=== PATIENT | male | born 2000 | race Hispanic/Latino ===

== ENCOUNTER 2024-12-12 14:56 | Emergency (ER) | payer BC ==
[~2024-12-12] VITALS: Ht 188 cm; Wt 101.2 kg
--- NOTE | 2024-12-12 16:24 | HMCIMG ---
EXAM: CT Head Without IV contrast. CLINICAL HISTORY: Headache TECHNIQUE: Axial computed tomography images of the head/brain without intravenous contrast. COMPARISON: None provided. FINDINGS: BRAIN: No evidence of acute hemorrhage. No mass lesion. No CT evidence for acute territorial infarct. No midline shift or extra-axial collections. VENTRICLES: No hydrocephalus. ORBITS: The orbits are unremarkable. SINUSES AND MASTOIDS: The paranasal sinuses and mastoid air cells are clear. BONES: No fracture. SOFT TISSUES: Unremarkable. IMPRESSION: No acute intracranial abnormality. /[place]
--- NOTE | 2024-12-12 16:36 | ERN ---
ED Note History of Present Illness Stated Complaint: HEADACHE Chief Complaint: Headache Time Seen by MD: 14:58 Time Seen by Midlevel: 15:00 Dictation: 23-year-old male with no past medical history coming in with complaints of feels like something is dripping inside my head. Patient states it has been going on for two week. Patient is also stating he has a headache when he turns to the left. Denies having any fever, nausea or vomiting or diarrhea. Denies any numbness tingling, slurred speech, dizziness, vision changes. Denies any neck pain. Allergies: Coded Allergies: No Known Drug Allergies (Unverified Allergy, Unknown, 12/12/24) Past Medical History Past Medical History: Heart Disease, Hypertension Surgical History: None Review of System Dictation Constitutional: Negative for fever,chills, and weight loss Eyes: Negative for injury, pain,redness, and discharge ENT: Negative for injury,pain or swelling Cardiovascular: Negative for chest pain, palpitations, and edema Respiratory: Negative for shortness of breath, cough, and wheezing, Abdomen/GI: Negative for abdominal pain, nausea, vomiting, diarrhea, and constipation Back: Negative for injury and pain : Negative for injury, bleeding and discharge MS/Extremity: Negative for injury and deformity Skin: Negative for rash, and discoloration Neuro: Negative for headache, weakness, numbness, tingling, and seizure , feels something dripping" in his head Psych: Negative for suicide ideation, homicidal ideation, and hallucinations Review of Systems: was completed Initial Vital Sign VS Vital Signs Date Time Temp Pulse Resp B/P (MAP) Pulse Ox O2 Delivery O2 Flow Rate FiO2 12/12/24 14:59 98.2 90 18 138/88 97 Room Air 0 12/12/24 15:29 21 Physical Exam Dictation General: awake, alert, NAD Head/Face: Normocephalic, atraumatic Eyes: PERRL, EOMI, vision at baseline ENT: oral cavity clear, TMs clear, no signs of infection Neck: Trachea midline, supple, no nuchal rigidity Cardiovascular: RRR, normal S1/S2, No MRGs, no JVD Respiratory: CTAB, no respiratory distress, No rales or wheezes Abdomen: Soft, non-tender, non-distended, normal bowel sounds, no guarding or rebound. Skin: Warm, dry, normal turgor, no rash MS/Extremity: Pulses equal, no cyanosis, neurovascular intact, FROM Neuro: COAx4, GCS 15, strength 5/5, CN 2-12 intact, normal cerebellar exam, normal gait, Psych: Normal behavior, mood, and affect normal Results (Laboratory/Radiology) CT Scan Comment: [place] [address] [place] [address] IMAGING REPORT Signed PATIENT: MAYKEL GARCIA MR#: [id number] : 2000 SEX: M AGE: 23 LOCATION: [facility] ORDER 38 STATUS: [facility] REPORT#: [id number] SERVICE 37 REASON: [place] ORDERING PHYSICIAN: BRIGETTE FORD PROCEDURE: HEAD WO - CT HEAD/BRAIN W/O CONTRAST EXAM: CT Head Without IV contrast. CLINICAL HISTORY: Headache TECHNIQUE: Axial computed tomography images of the head/brain without intravenous contrast. COMPARISON: None provided. FINDINGS: BRAIN: No evidence of acute hemorrhage. No mass lesion. No CT evidence for acute territorial infarct. No midline shift or extra-axial collections. VENTRICLES: No hydrocephalus. ORBITS: The orbits are unremarkable. SINUSES AND MASTOIDS: The paranasal sinuses and mastoid air cells are clear. BONES: No fracture. SOFT TISSUES: Unremarkable. IMPRESSION: No acute intracranial abnormality. /[place] DICTATED BY: TAMMY GARCIA MD DATE: 12/12/241723 ELECTRONICALLY SIGNED BY: TAMMY GARCIA MD DATE: 12/12/241723 ED Course ED Course Orders Procedure Category Date Status Time Ct Head/Brain W/O CT 12/12/24 Resulted Contrast 15:38 Vital Signs Date Time Temp Pulse Resp B/P (MAP) Pulse Ox O2 Delivery O2 Flow Rate FiO2 12/12/24 16:51 98.1 88 20 136/72 98 Room Air* 0 21 12/12/24 15:29 89 20 129/70 97 Room Air* 0 21 12/12/24 14:59 98.2 90 18 138/88 97 Room Air 0 Medical Decision Making MDM MDM: 23-year-old male with no past medical history coming in with complaints of feels like something is dripping inside my head. Patient states it has been going on for two week. Patient is also stating he has a headache when he turns to the left. Denies having any fever, nausea or vomiting or diarrhea. Denies any numbness tingling, slurred speech, dizziness, vision changes. Denies any neck pain. CT scan of the head is negative. Discussed with the patient she needs to follow up outpatient he continues with a headache. Educated to stay hydrated take Tylenol or Motrin [id number] for pain control and to use with the hospital if you develop any worsening symptoms. Patient verbalized understanding, answered all questions. Differential diagnosis: Tension headache, ICH, Rationale: Tests considered and ordered secondary to shared decision making include: Previous outside records reviewed: Old ER visits. Risk of complication and/or morbidity or mortality of patient management: None Medications-Per medication reconciliation Need for hospitalization: Patient does not meet criteria for hospitalization. Need for emergency major/minor surgery: No There are no social concerns with this patient. Prescription drug management Prescriptions will include symptomatic care Patient's prior external medical records from other ER visits were reviewed by me as indicated. Prior testing and results from previous visits were reviewed. Prior tests were taken into account with medical decision making and resource utilization, independent historian/historians were used to obtain complete medical history. I independently interpreted the test that were performed, results were reviewed by me and considered findings on radiology if ordered. Medical management and examination interpretation discussions were had by me with other qualified healthcare professionals as indicated for the patient's care. DX & DISP Disposition: Discharge Departure Impression: Primary Impression: Headache Condition: Stable Additional Instructions: Your CAT scan shows everything is normal. Please follow up with your primary care provider for further evaluation. Return to the hospital if you develop any worsening symptoms. You can take Tylenol or Motrin [id number] for pain control. Time of Disposition: 16:35 I have reviewed the case, and I agree with, Diagnosis and Plan BRIGETTE FORD Dec 12, 2024 16:36 JUAN CARROLL DO Dec 12, 2024 19:05
[2024-12-12 16:51] VITALS: BP 136/72; PULSE 88; RESP 20; TEMP 98; O2SAT 98
== END 2024-12-12 16:54 | disposition home or self-care (01) ==
LOC: EDH 14:56
DX: R51.9 Headache, unspecified (principal); I11.9 Hypertensive heart disease without heart failure
CPT/HCPCS: 70450; 99284

== ENCOUNTER 2025-02-08 13:46 | Emergency (ER) | payer BC ==
[~2025-02-08] VITALS: Ht 188 cm; Wt 108.0 kg
[2025-02-08 13:56] VITALS: BP 158/96; PULSE 86; RESP 20; TEMP 98.1; O2SAT 98
--- NOTE | 2025-02-08 14:00 | ERN ---
ED Note History of Present Illness Stated Complaint: HEAD/SCALP PROBLEM Chief Complaint: Other Problems Time Seen by MD: 13:50 Dictation: PATIENT IS A 24-YEAR-OLD MALE COMING TODAY WITH COMPLAINTS OF HAVING SOMETHING CRAWLING IN HIS SCALP AND FEELING VERY UNCOMFORTABLE FOR THE LAST 2-3 DAYS THERE WAS NO FEVER NO CHILLS NO NAUSEA VOMITING NO HEADACHE. EXAMINATION OF HIS SCALP IN TRIAGE SHOWS THAT THERE IS NO LICE, THERE IS NO SCABIES, THERE WAS NO LESIONS BUMPS RASH. Allergies: Coded Allergies: No Known Drug Allergies (Unverified Allergy, Unknown, 12/12/24) Past Medical History Past Medical History: Heart Disease, Hypertension Surgical History: None RN Note Reviewed/Agreed w/PFSH: Yes Review of System Dictation CONSTITUTIONAL: NEGATIVE EXCEPT FOR HPI HEAD/FACE: NEGATIVE EXCEPT FOR HPI EENT: NEGATIVE EXCEPT FOR HPI RESPIRATORY: NEGATIVE EXCEPT FOR HPI GASTROINTESTINAL/ABDOMINAL: NEGATIVE EXCEPT FOR HPI GENITOURINARY: NEGATIVE EXCEPT FOR HPI MUSCULOSKELETAL: NEGATIVE EXCEPT FOR HPI INTEGUMENTARY: NEGATIVE EXCEPT FOR HPI SCALP COMPLAINTS NEUROLOGICAL/PSYCH: NEGATIVE EXCEPT FOR HPI HEMATOLOGIC/LYMPHATIC: NEGATIVE EXCEPT FOR HPI ALL SYSTEMS NEGATIVE, EXCEPT NOTED ABOVE. 13 POINT REVIEW OF SYSTEMS ASSESSED AND ALL NEGATIVE EXCEPT FOR ABOVE. Initial Vital Sign VS Vital Signs Date Time Temp Pulse Resp B/P (MAP) Pulse Ox O2 Delivery O2 Flow Rate FiO2 02/08/25 13:48 98.1 86 20 158/96 99 Room Air Physical Exam Dictation VITAL SIGNS REVIEWED GENERAL APPEARANCE: ALERT, ORIENTED X 3, NO ACUTE DISTRESS, WELL DEVELOPED, NOURISHED. HEAD AND FACE: NON-TRAUMATIC. EXAMINATION OF SCALP REVEALS NO LICE, NO SCABIES, NO MACULAR LESIONS VESICULAR LESIONS RASH HEMATOMA. NO ERYTHEMA NO REDNESS NO DANDRUFF EYES: PERRL, PINK CONJUNCTIVAS, EYELID NO TRAUMA, ANTERIOR CHAMBER WITH ARCUS SENILIS. EARS: PINNAS INTACT AND NO SIGNS OF TRAUMA OR ERYTHEMA EAR CANALS CLEAR AND NO DISCHARGE TM NO ERYTHEMA NOSE: NO DISCHARGE, NO BLEEDING. OROPHARYNX: MOUTH NORMAL, TONGUE PINK, PHARYNX CLEAR,NO ERYTHEMA, TONSILS NO EXUDATES, NO ABSCESSES NOTED, MUCOUS MEMBRANE MOIST NECK: SUPPLE, NON-TENDER, NO THYROMEGALY, NO MASSES, NO JVD, NO BRUITS BREAST:DEFERRED CHEST:NO TENDERNESS, NO CREPITUS, NO PARADOXICAL MOVEMENT, NO RETRACTIONS LUNGS:CLEAR, WELL-VENTILATED, SYMMETRIC, NO RALES, NO WHEEZING, NO RHONCHI, NO STRIDOR, GOOD BREATH SOUNDS BILATERALLY HEART: REGULAR RATE, REGULAR RHYTHM, NO MURMUR, NO GALLOPS VASCULAR: NO PERIPHERAL EDEMA, ABDOMEN: SOFT, POSITIVE BOWEL SOUNDS, NONDISTENDED, NO GUARDING, NONTENDER, NO REBOUND, NO MASSES NO HEPATOMEGALY, NO SPLENOMEGALY, NO QUINTANILLA'S SIGN, NO HERNIAS. RECTAL: DEFERRED GENITAL: DEFERRED NEUROLOGICAL: NORMAL SPEECH, MOTOR FUNCTION INTACT, SENSORY FUNCTION INTACT MUSCULOSKELETAL: NECK NONTENDER, FULL RANGE OF MOTION, BACK NONTENDER, FULL RANGE OF MOTION, EXTREMITIES: NONTENDER, FULL RANGE OF MOTION SKIN: COLOR PINK, DRY, NO TURGOR, NO RASH, NO LACERATIONS, NO ABRASIONS, NO CONTUSIONS. LYMPHATIC: DEFERRED Results (Laboratory/Radiology) Labs Reviewed?: Yes ED Course ED Course Vital Signs Date Time Temp Pulse Resp B/P (MAP) Pulse Ox O2 Delivery O2 Flow Rate FiO2 02/08/25 13:48 98.1 86 20 158/96 99 Room Air 1400/STRONGLY ADVISED PATIENT TO FOLLOW UP WITH HIS PRIMARY CARE DOCTOR IN THE NEXT 1-2 DAYS. I HAVE NO MEDICAL EMERGENCY URGENCY THAT I CAN TREAT AT THIS TIME. PATIENT STATES HE DOES NOT HAVE A HEADACHE AND HE IS NEUROLOGICALLY INTACT Medical Decision Making MDM MEDICAL DECISION-MAKING BASED ON HPI AND PHYSICAL EXAMINATION. NO LABS OR IMAGING INDICATED. PATIENT NEUROLOGICALLY INTACT STRONGLY ADVISED PATIENT TO FOLLOW UP WITH HIS PRIMARY CARE DOCTOR DX & DISP Disposition: Discharge Departure Impression: Primary Impression: Well adult exam Condition: Stable Additional Instructions: FOLLOW-UP WITH PRIMARY CARE PROVIDER IN 1 TO 2 DAYS. TAKE MEDICATIONS DIRECTED HERE IN THE EMERGENCY ROOM. OKAY TO CONTINUE HOME MEDICATIONS UNLESS OTHERWISE DISCUSSED DURING YOUR VISIT IN THE EMERGENCY ROOM TODAY. RETURN TO YOUR NEAREST EMERGENCY ROOM IF SYMPTOMS WORSEN OR IF THERE IS NO IMPROVEMENT. CALL 911 IF YOU NEED IMMEDIATE ASSISTANCE. TAKE TYLENOL OR MOTRIN OVER-THE- COUNTER NEEDED AND IF NO CONTRAINDICATIONS ARE PRESENT. INCREASE ORAL HYDRATION. A WOUND CULTURE OR URINE CULTURE WAS ORDERED HERE IN THE EMERGENCY ROOM DEPARTMENT PLEASE FOLLOW-UP WITH PRIMARY CARE PROVIDER AND ADVISE THEM TO GET REPEAT PORTS FROM OUR FACILITY. IF YOU HAD ANY DANIEL WRAP/SPLINTS THAT WERE APPLIED HERE, PLEASE DO NOT REMOVE THEM UNTIL YOU SEE YOUR PRIMARY CARE OR SPECIALTY. SEE YOUR PRIMARY CARE DOCTOR FOR FOLLOW UP IN THE NEXT 1-2 DAYS Referrals: SELF,REFERRAL (PCP) Time of Disposition: 13:59 I have reviewed the case, and I agree with, Diagnosis and Plan KELLY GRAY WARP STARTER Feb 08, 2025 14:00
== END 2025-02-08 14:14 | disposition home or self-care (01) ==
LOC: EDH 13:46
DX: R25.0 Abnormal head movements (principal); I11.9 Hypertensive heart disease without heart failure
CPT/HCPCS: 99282